=== PATIENT | male | born 1945 | race Caucasian/White ===

== ENCOUNTER → 2020-03-24 11:05 | Outpatient (CLI) | payer MEDICARE, SELFPAY ==
--- NOTE | 2020-03-24 11:30 | US_ITS ---
APPROVED REPORT Exam Type: Lower Extremity Segmental Pressures [employer] Specialist: Kathi Smith RVT Indications Numbness/Tingling History of Smoking CAD HAIR LOSS ABI LEGS,SMALL LESIONS LOWER ABI LEGS, COLD FEET ABI Risk Factors Hypertension CAD Cardiac Disease History of Smoking Pressures/Indices Right Indices Left Indices Brachial 145.00 mmHg Brachial 133.00 mmHg Low Thigh 148.00 mmHg 1.02 Low Thigh 144.00 mmHg 0.99 Calf 150.00 mmHg 1.03 Calf 152.00 mmHg 1.05 Ankle(PT) 140.00 mmHg 0.97 Ankle(PT) 159.00 mmHg 1.10 Ankle(DP) 158.00 mmHg 1.09 Ankle(DP) 156.00 mmHg 1.08 Digit 143.00 mmHg 0.99 Digit 153.00 mmHg 1.06 Findings RT GAVIN:1.09 LT GAVIN:1.06 RT TBI:0.99 LT TBI:1.06 NORMAL WAVEFORMS ABI NORMAL PULSES ABI Conclusion RT GAVIN:1.09 LT GAVIN:1.06 RT TBI:0.99 LT TBI:1.06 NORMAL WAVEFORMS ABI NORMAL PULSES ABI Normal appearing resting noninvasive lower extremity arterial study. Electronically signed by : Frank Jade MD 03/24/2020 17:33:05
== END ==
PROVIDERS: PCP Internal Medicine; Visit Provider Nurse Practitioner Family
DX: E78.5 Hyperlipidemia, unspecified (principal); I11.9 Hypertensive heart disease without heart failure; I25.10 Atherosclerotic heart disease of native coronary artery without angina pectoris; I48.91 Unspecified atrial fibrillation; I73.9 Peripheral vascular disease, unspecified; L97.909 Non-pressure chronic ulcer of unspecified part of unspecified lower leg with unspecified severity
CPT/HCPCS: 93923

== ENCOUNTER → 2020-03-24 14:36 | Outpatient (CLI) | payer MEDICARE, SELFPAY ==
[2020-03-24 15:18] LABS: Erythrocyte Sedimentation Rate 8 mm/hr (0-20)
[2020-03-24 15:41] LABS: C-Reactive Protein 3.4 mg/L (0-4)
[2020-03-26 10:16] LABS: Folate 11.8 ng/mL (>3.0); Vitamin B12 558 pg/mL (232-1245)
== END ==
PROVIDERS: Visit Provider Internal Medicine
DX: E78.2 Mixed hyperlipidemia (principal); I11.9 Hypertensive heart disease without heart failure; I25.10 Atherosclerotic heart disease of native coronary artery without angina pectoris; I48.0 Paroxysmal atrial fibrillation; R21 Rash and other nonspecific skin eruption; I73.9 Peripheral vascular disease, unspecified
CPT/HCPCS: 36415; 82607; 82746; 85651; 86140; 93923

== ENCOUNTER → 2020-04-22 14:13 | Outpatient (CLI) | payer MEDICARE, SELFPAY ==
[2020-04-22 18:16] LABS: Prostate Specific Ag, Diagnost 4.61 ng/ml (0.0-4.0)
== END ==
PROVIDERS: Visit Provider Urology
DX: N40.0 Benign prostatic hyperplasia without lower urinary tract symptoms (principal); R33.9 Retention of urine, unspecified
CPT/HCPCS: 36415; 84153

== ENCOUNTER → 2022-01-10 12:17 | Outpatient (CLI) | payer MEDICARE, SELFPAY ==
--- NOTE | 2022-01-10 12:19 | CA_ITS ---
APPROVED REPORT EXAM: Comprehensive 2D, Doppler, and color-flow Echocardiogram Patent Drafter: Nelda Aguilar RDCS Ht: 6 ft 3 in Wt: 178lbs BSA: 2.09 BP: 127/91 mmHg Indications: FONSECA,H/O COVID,AF,CAD 2D Dimensions LVOT 2.30 cm (M/F) 1.5-2.5 M-Mode Dimensions RVDd 3.46 cm (0.9-2.6) LA Diam 3.59 cm (1.9-4.0) LVDd 4.71 cm (3.5-5.7) Ao Diam 3.37 cm (2.0-3.7) LVDs 3.03 cm (3.5-5.7) IVSd 0.89 cm (0.6-1.1) PWd 0.93 cm (0.6-1.1) EF (Teich) 65.10% FS 35.70% EDV (Teich) 102.90 mL TAPSE 1.76 (<1.7) ESV (Teich) 35.90 mL LV Diastology E Decel Time 227.00 (160-240 msec) E/A Ratio 0.8 MED E' 5.90 (< 7 cm/sec) E'/MED E' Ratio 7.10 (>14) LAT E' 5.50 (<10 cm/sec) E/LAT E' Ratio 7.62 (>14) Mitral Valve MV E Max Aydin. 42.00 (40-130 cm/s) MV A Velocity 53.00 (40-130 cm/s) E/A Ratio 0.79 MV Decel. Time 227.00 (160-240 ms) MV PHT 66.00 ms Tricuspid Valve TR P. Velocity 233.00 cm/s RAP Estimate 10.00 mmHg RVSP 31.70 mmHg Left Ventricle Left atrium is mildly enlarged, left ventricle is normal size, mild concentric left ventricular hypertrophy, estimated ejection fraction 55% with no regional wall motion abnormality, grade 1 diastolic dysfunction seen without tissue Doppler evidence of raise left atrial pressure. Right Ventricle Right atrium and right ventricle are mildly enlarged with normal contractility. Aortic Valve Aortic valve is minimally thickened and calcified without aortic stenosis or aortic insufficiency. Mitral Valve Mitral valve is grossly normal, there is trace mitral regurgitation. Tricuspid Valve Tricuspid grossly normal, there is trace tricuspid regurgitation, calculated right ventricular systolic pressure is 32 mmHg. Pulmonic Valve Pulmonic valve is poorly visualized. Great Vessels Aortic root is normal size. Inferior vena cava normal size with normal inspiratory collapse. Pericardium No significant pericardial effusion noted. Conclusion 1. Biatrial enlargement, normal left ventricular size, mild concentric left ventricular hypertrophy, estimated ejection fraction 55% with no regional wall motion abnormality, grade 1 diastolic dysfunction seen without tissue Doppler evidence of raise left atrial pressure. 2. Mildly enlarged right ventricle with normal contractility. 3. Trace mitral and tricuspid regurgitation, calculated right ventricular systolic pressure is 32 mmHg. 4. No significant pericardial effusion. 5. Inferior vena cava is normal size with normal inspiratory collapse. Electronically signed by : Dieudonne Carey MD 01/11/2022 12:12:23
== END ==
PROVIDERS: PCP Family Medicine; Visit Provider Internal Medicine
DX: E78.2 Mixed hyperlipidemia (principal); I11.9 Hypertensive heart disease without heart failure; I25.10 Atherosclerotic heart disease of native coronary artery without angina pectoris; I48.0 Paroxysmal atrial fibrillation; R06.00 Dyspnea, unspecified
CPT/HCPCS: 93306

== ENCOUNTER 2024-09-22 12:17 | Outpatient (CLI) | payer MEDICARE, SELFPAY ==
[2024-09-22 12:50] LABS: Basophils # 0.1 K/mm3 (0-0.2); Basophils % 1.2 % (0.1-2.0); Eosinophils # 0.4 K/mm3 (0.0-0.4); Eosinophils % 4.8 % (0.1-12.0); Hematocrit 45.4 % (42.0-52.0); Hemoglobin 14.9 g/dL (14.1-18.0); Lymphocytes # 0.9 K/mm3 (0.7-4.5); Lymphocytes % 11.7 % (10-50); Mean Corpuscular HGB Conc 32.8 g/dL (31.8-35.4); Mean Corpuscular Volume 94.4 fl (80-94); Mean Platelet Volume 12.3 fl (7.4-10.4); Monocytes # 0.8 K/mm3 (0.1-1.0); Neutrophils # 5.4 K/mm3 (1.8-7.8); Platelet Count 257 K/mm3 (142-424); Red Blood Count 4.81 M/mm3 (4.60-6.20); Red Cell Distribution Width 13.3 % (11.5-17.5); White Blood Count 7.5 K/mm3 (4.8-10.8)
[2024-09-22 13:14] LABS: Alanine Aminotransferase 19 U/L (12-78); Albumin Level 4.2 g/dl (3.5-5.0); Alkaline Phosphatase 61 U/L (38-126); Aspartate Amino Transferase 23 U/L (17-59); Bilirubin,Direct 0.3 mg/dl (0.0-0.4); Bilirubin,Indirect 0.5 mg/dL (0.0-0.9); Bilirubin,Total 0.8 mg/dl (0.2-1.3); Bilirubin,Unconjugated 0.5 mg/dL (0.0-1.1); Blood Urea Nitrogen 14 mg/dl (9-20); Calcium 9.4 mg/dl (8.4-10.2); Carbon Dioxide 29 mmol/L (22.0-30.0); Chloride 101 mmol/L (98-107); Chol/HDL Ratio 3.7 (1-3.5); Cholesterol 176 mg/dl (140-200); Estimated Glomerular Filt Rate 58 ml/min (>60); GFR (African American) 71 ML/MIN (>60); Glucose 104 mg/dl (74-100); HDL Cholesterol 47 mg/dl (40-60); Magnesium 1.8 mg/dl (1.6-2.3); Sodium 140 mmol/L (136-145); Total Protein,Serum 6.9 g/dl (6.3-8.2); Triglycerides 115 mg/dl (30-150); VLDL Cholesterol 23 mg/dL (0-40)
[2024-09-22 13:24] LABS: Direct LDL Cholesterol 87.96 mg/dL (100-129)
[2024-09-22 13:45] LABS: Thyroid Stimulating Hormone 1.46 uIU/mL (0.465-4.68)
== END 2024-09-22 23:59 | disposition home or self-care (01) ==
LOC: LAB 12:18
PROVIDERS: Visit Provider Internal Medicine
DX: I25.10 Atherosclerotic heart disease of native coronary artery without angina pectoris (principal); I48.0 Paroxysmal atrial fibrillation; I11.9 Hypertensive heart disease without heart failure; E78.2 Mixed hyperlipidemia; I34.0 Nonrheumatic mitral (valve) insufficiency
CPT/HCPCS: 36415; 80048; 80061; 80076; 83735; 84439; 84443; 85025